=== PATIENT | female | born 1965 | race African-American/Black ===

== ENCOUNTER 2017-04-03 21:29 | Emergency (ER) | payer OTHER ==
[~2017-04-03] VITALS: Ht 152.4 cm; Wt 108.2 kg
[2017-04-03] MEDS ORDERED: ULTRAM50 MG PO (23:20)
[2017-04-03] MEDS ORDERED: BACTRIM,SEPT1 TABLET PO (23:20)
[2017-04-03] MEDS ORDERED: KEFLEX500 MG PO (23:20)
[2017-04-03 23:34] VITALS: BP 134/74
== END 2017-04-03 23:37 | disposition home or self-care (01) ==
LOC: EME 21:29
DX: L03.116 Cellulitis of left lower limb (principal); S90.862A Insect bite (nonvenomous), left foot, initial encounter; W57.XXXA Bitten or stung by nonvenomous insect and other nonvenomous arthropods, initial encounter; I10 Essential (primary) hypertension; G47.30 Sleep apnea, unspecified; J98.9 Respiratory disorder, unspecified; Z99.81 Dependence on supplemental oxygen; Z87.891 Personal history of nicotine dependence
CPT/HCPCS: 99281; 99284

== ENCOUNTER 2017-04-19 17:53 | Inpatient (IN) | payer OTHER ==
[~2017-04-19] VITALS: Ht 152.4 cm; Wt 113.5 kg
[~2017-04-19 17:53] MED LIST: BACTRIM,SEPT1 TABLET PO; KEFLEX500 MG PO; ULTRAM50 MG PO
[2017-04-19 19:41] LABS: EOSINOPHIL (%) 1.6 % (0-5); EOSINOPHIL COUNT 0.2 K/uL (0-0.3); HEMATOCRIT 36.2 % (36.0-46.0); IMMATURE GRANULOCYTE (%) 0.1 % (0.0-0.7); INSTRUMENT ABS NEUTROPHIL CT 7.3 K/uL; LYMPHOCYTE COUNT 1.2 K/uL (1.0-2.8); MCH 23.3 PG (29.0-34.0); MCHC 27.6 G/DL (30.0-36.0); MCV 84.4 FL (83-99); MEAN PLAT.VOLUME 11.3 uM^3 (9.5-12.4); MONOCYTE (%) 8.1 % (3-12); MONOCYTE COUNT 0.8 K/uL (0-0.8); NEUTROPHIL (%) 77.3 % (45-76); NEUTROPHIL COUNT 7.3 K/uL (1.8-6.4); PLATELET COUNT 203 K/uL (156-360); RBC DIS.WIDTH-SD 52.8 % (39-53); RED BLOOD COUNT 4.29 M/uL (3.80-5.20); WHITE BLOOD COUNT 9.4 K/uL (4.1-10.2)
[2017-04-19 19:44] LABS: CHLORIDE 101 mEq/L (99-109); POTASSIUM 4.7 mEq/L (3.7-5.4); SODIUM 144 mEq/L (136-147)
[2017-04-19 19:45] LABS: GLUCOSE 81 mg/dL (70-99)
[2017-04-19 19:47] LABS: ANION GAP 6 MEQ/L (2-14)
[2017-04-19 19:49] LABS: GFR ESTIMATE (CALCULATED) > 59 mL/min/
[2017-04-19 19:50] LABS: UREA NITROGEN (BUN) 13 mg/dL (9-23)
[2017-04-19] MEDS ORDERED: KEFLEX500 MG PO (20:50)
[2017-04-19] MEDS ORDERED: BACTRIM,SEPT1 TABLET PO (20:50)
[2017-04-19] MEDS ORDERED: VENTOLIN HFA18 GM IH (20:51)
[2017-04-19] MEDS ORDERED: LASIX40 MG PO (20:51)
[2017-04-19] MEDS ORDERED: NEXIUM40 MG PO (20:51)
[2017-04-19] MEDS ORDERED: COUGH DROPS1 EACH MM (20:52)
[2017-04-19] MEDS ORDERED: POTASSIUM CHLO10 ME4 PO (20:52)
[2017-04-19] MEDS ORDERED: ALEVE220 MG PO (20:52)
[2017-04-19] MEDS ORDERED: ESOMEPRAZOLE MA40 MG PO (21:03)
[2017-04-19] MEDS ORDERED: LISINOPRIL10 MG PO (21:03)
[2017-04-19] MEDS ORDERED: ADVAIR 250/501 DISK IH (21:03)
[2017-04-19 23:43] VITALS: BP 119/57
[2017-04-20 04:22] VITALS: BP 121/62
[2017-04-20 06:39] LABS: POINT-OF-CARE METER ID UU14208750
[2017-04-20 07:44] VITALS: BP 142/67
[2017-04-20 09:11] LABS: EOSINOPHIL (%) 0 % (0-5); HEMATOCRIT 37.6 % (36.0-46.0); IMMATURE GRANULOCYTE (%) 0.5 % (0.0-0.7); IMMATURE GRANULOCYTE COUNT 0.1 K/uL; INSTRUMENT ABS NEUTROPHIL CT 9.2 K/uL; LYMPHOCYTE COUNT 0.3 K/uL (1.0-2.8); MCH 23.2 PG (29.0-34.0); MCHC 27.7 G/DL (30.0-36.0); MCV 83.7 FL (83-99); MEAN PLAT.VOLUME 11.6 uM^3 (9.5-12.4); MONOCYTE (%) 0.5 % (3-12); MONOCYTE COUNT 0.1 K/uL (0-0.8); NEUTROPHIL (%) 95.6 % (45-76); NEUTROPHIL COUNT 9.2 K/uL (1.8-6.4); PLATELET COUNT 194 K/uL (156-360); RBC DIS.WIDTH-SD 52.1 % (39-53); RED BLOOD COUNT 4.49 M/uL (3.80-5.20); WHITE BLOOD COUNT 9.6 K/uL (4.1-10.2)
[2017-04-20 09:38] LABS: ANION GAP 6 MEQ/L (2-14); CHLORIDE 95 MEQ/L (99-109); GFR ESTIMATE (CALCULATED) > 59 mL/min/; MAGNESIUM 1.8 mg/dl (1.3-2.7); POTASSIUM 4.4 MEQ/L (3.7-5.4); SAMPLE HEMOLYSIS CHECK 0; SAMPLE ICTERIC CHECK 0; SAMPLE LIPEMIA CHECK 0; SODIUM 141 MEQ/L (136-147); UREA NITROGEN (BUN) 11 mg/dL (9-23)
[2017-04-20 09:43] LABS: GLUCOSE 219 mg/dL (70-99)
[2017-04-20 10:01] LABS: Estimated Average Glucose 117 mg/dL (70-123); HEMOGLOBIN A1c (GLYCOHEMOGLOB) 5.7 % HGB (Below 5.7)
[2017-04-20 11:35] VITALS: BP 150/68
[2017-04-20 11:42] LABS: POINT-OF-CARE METER ID UU14208750
[2017-04-20 15:49] VITALS: BP 115/55
[2017-04-20 16:49] LABS: POINT-OF-CARE METER ID UU14208750
[2017-04-20 19:15] VITALS: BP 130/59
[2017-04-20 22:12] LABS: POINT-OF-CARE METER ID UU14208750
[2017-04-20 23:47] VITALS: BP 117/57
[2017-04-21 06:44] LABS: POINT-OF-CARE METER ID UU14208750
[2017-04-21 08:05] VITALS: BP 129/64
[2017-04-21 12:08] LABS: POINT-OF-CARE METER ID UU14208750
[2017-04-21 15:45] VITALS: BP 128/65
[2017-04-21 16:49] LABS: POINT-OF-CARE METER ID UU14208750
[2017-04-21 20:06] VITALS: BP 140/69
[2017-04-21 22:02] LABS: POINT-OF-CARE METER ID UU14162508
[2017-04-21 23:32] VITALS: BP 139/69
[2017-04-22 06:26] LABS: POINT-OF-CARE METER ID UU14162508
[2017-04-22 07:50] VITALS: BP 148/86
[2017-04-22 11:49] LABS: POINT-OF-CARE METER ID UU14162508
[2017-04-22] MEDS ORDERED: CEPHALEXIN500 MG PO (12:32)
[2017-04-22] MEDS ORDERED: AMLODIPINE BESYL5 MG PO (12:32)
[2017-04-22] MEDS ORDERED: FERROUS SULFAT325 MG PO (12:34)
[2017-04-22] MEDS ORDERED: PREDNISONE10 MG PO (12:38)
== END 2017-04-22 13:29 | disposition home or self-care (01) | DRG 292 ==
LOC: EME 17:53 → EDOF 20:18 → 2EAST 20:18 → ENRESERV 20:20 → CANRESERV 20:20 → ENRESERV 21:07 → 2EAST 23:27
PROVIDERS: Hospitalist; Physician Assistant; Physician Assistant Medical
PROC: 5A09357 Assistance with Respiratory Ventilation, Less than 24 Consecutive Hours, Continuous Positive Airway Pressure (ICD-10-PCS; principal; 2017-04-21)
DX: I11.0 Hypertensive heart disease with heart failure (principal); J44.1 Chronic obstructive pulmonary disease with (acute) exacerbation; L03.116 Cellulitis of left lower limb; J96.12 Chronic respiratory failure with hypercapnia; G47.33 Obstructive sleep apnea (adult) (pediatric); E66.01 Morbid (severe) obesity due to excess calories; Z68.42 Body mass index [BMI] 45.0-49.9, adult; E78.5 Hyperlipidemia, unspecified; J45.901 Unspecified asthma with (acute) exacerbation; Z99.81 Dependence on supplemental oxygen; Z91.19 Patient's noncompliance with other medical treatment and regimen; I50.43 Acute on chronic combined systolic (congestive) and diastolic (congestive) heart failure; E11.40 Type 2 diabetes mellitus with diabetic neuropathy, unspecified; D50.9 Iron deficiency anemia, unspecified; M17.0 Bilateral primary osteoarthritis of knee; J96.11 Chronic respiratory failure with hypoxia; M10.9 Gout, unspecified; F89 Unspecified disorder of psychological development
CPT/HCPCS: 71020; 80048; 82948; 83036; 83605; 83735; 83880; 85025; 87040; 93005; 93970; 94640; 94640 76; 94660; 94799; 99202; 99281; 99285; J0690; J0744; J1650; J1815; J1940; J2543; J2920; J2930; J3370; J7050; J7512

== ENCOUNTER 2018-03-15 00:14 | Emergency (ER) | payer OTHER ==
[~2018-03-15] VITALS: Ht 152.4 cm; Wt 104.7 kg
[~2018-03-15 00:14] MED LIST changes: +ADVAIR 250/501 DISK IH; +ALEVE220 MG PO; +AMLODIPINE BESYL5 MG PO; +CEPHALEXIN500 MG PO; +COUGH DROPS1 EACH MM; +ESOMEPRAZOLE MA40 MG PO; +FERROUS SULFAT325 MG PO; +LASIX40 MG PO; +LISINOPRIL10 MG PO; +NEXIUM40 MG PO; +POTASSIUM CHLO10 ME4 PO; +PREDNISONE10 MG PO; +VENTOLIN HFA18 GM IH
[2018-03-15 01:43] LABS: ALBUMIN 3.3 g/dL (3.2-4.8); CHLORIDE 94 mEq/L (99-109); POTASSIUM 3.9 mEq/L (3.7-5.4); SODIUM 140 mEq/L (136-147)
[2018-03-15 01:45] LABS: GLUCOSE 122 mg/dL (70-99); TOTAL PROTEIN 7.2 g/dL (6.4-8.3)
[2018-03-15 01:47] LABS: TOTAL BILIRUBIN 0.3 mg/dL (0.0-1.0)
[2018-03-15 01:49] LABS: ALKALINE PHOSPHATASE 73 IU/L (3-129); CREATININE 0.8 mg/dL (0.6-1.3); GFR ESTIMATE (CALCULATED) > 59 mL/min/
[2018-03-15 01:50] LABS: UREA NITROGEN (BUN) 6 mg/dL (9-23)
[2018-03-15 01:51] LABS: AST (GOT) 34 IU/L (2-34)
[2018-03-15 01:52] LABS: ALT (GPT) 43 IU/L (3-49)
[2018-03-15 01:59] LABS: TROP-I INTERPRETATION NEGATIVE; TROPONIN-I < 0.01 ng/mL (0.0-0.30)
[2018-03-15] MEDS ORDERED: ZITHROMAX250 MG PO (03:02)
[2018-03-15] MEDS ORDERED: PREDNISONE20 MG PO (03:02)
[2018-03-15 03:23] VITALS: BP 116/56
== END 2018-03-15 03:27 | disposition left against medical advice (07) ==
LOC: EME 00:14
PROVIDERS: Emergency Medicine
DX: J44.1 Chronic obstructive pulmonary disease with (acute) exacerbation (principal); I11.0 Hypertensive heart disease with heart failure; I50.9 Heart failure, unspecified; G47.30 Sleep apnea, unspecified; Z99.81 Dependence on supplemental oxygen; Z87.891 Personal history of nicotine dependence
CPT/HCPCS: 71046; 80053; 83880; 83880 GA; 84484; 85025; 85025 GA; 85379; 94640; J2930